=== PATIENT | female | born 1990 | race Caucasian/White ===

== ENCOUNTER → 2017-05-19 15:21 | Observation (INO) ==
[2017-05-19 14:22] LABS: Bilirubin,Urine Negative (Negative); Blood,Urine Negative (Negative); Clarity,Urine Cloudy (Clear); Color,Urine Yellow (Yellow); Glucose,Urine (UA) Normal (Normal); Ketones,Urine Trace mg/dL (Negative); Leukocyte Esterase,Urine Small (Negative); Nitrite,Urine Negative (Negative); Protein,Urine 30 mg/dL (Neg-Trace); Specific Gravity,Urine 1.026 (1.010-1.025); Urobilinogen,Urine Normal (Normal)
[2017-05-19 14:28] LABS: Amphetamine Screen,Urine Negative ng/mL (Cutoff=1000); Barbiturate Screen,Urine Negative ng/mL (Cutoff=200); Benzodiazepines Screen,Urine Negative ng/mL (Cutoff=200); Cannabinoid Screen,Urine Negative ng/mL (Cutoff = 50); Cocaine Screen,Urine Negative ng/mL (Cutoff= 300); Opiate Screen,Urine Negative ng/mL (Cutoff=300); Phencyclidine Screen,Urine Negative ng/mL (Cutoff=25)
[2017-05-19 14:36] LABS: Bacteria,Urine Few per hpf (None-Few); Calcium Oxalate Crystals,Urine Present; RBC,Urine 0-3 per hpf (0-3); Squamous Epithelial Cell,Urine Moderate per lpf (None-Few); WBC,Urine 0-3 per hpf (0-3)
--- NOTE | 2017-05-19 15:04 | OB/GYN Progress Note ---
Date of Encounter: 05/19/17 Time of Encounter: 14:50 - Assessment and Plan (1) 36 weeks gestation of Current Visit: Yes Status: Acute admitted for observation (2) Decreased movement Current Visit: Yes Status: Acute reactive nst Qualifiers: Fetus number: single or unspecified fetus Trimester: third trimester Qualified Code(s): O36.8130 - Decreased movements, third trimester, not applicable or unspecified (3) NST (non-stress test) reactive on surveillance Current Visit: Yes Status: Acute FHR baseline 135 bpm moderate variability +15x15 accels no decels noted. CAt. 1 tracing Subjective - Subjective Principal diagnosis: contractions and decreased movement Interval history: Patient is a 26 y/o at 36w6d presents to labor and delivery with c/o contractions and decreased movement. [facility] patient has not had much to eat or drink in the past 24 hours. Patient denies any urinary symptoms or vaginal bleeding. Antepartum ROS: no loss of fluid, no vaginal bleeding Objective - Vital Signs Vital Signs: Intake and Output 05/18/17 05/19/17 05/19/17 23:59 07:59 15:59 Other: Weight 90.4 kg Patient Weight 05/19/17 23:59 Weight 90.4 kg - Exam FHR: auscultation normal, category 1 FHR comments: 135 bpm moderate variability +15x15 accels no decels noted. CAt. 1 tracing. Auscultation: bilateral: normal Abdomen: Present: normal appearance, soft, gravid Uterus: Present: normal, firm Cervical dilation: FT per RN Cervix effacement: thick station: high - Labs Labs: Abnormal lab results Urine Clarity Cloudy (Clear) A 05/19/17 13:45 Ur Specific [place] 1.026 (1.010-1.025) H 05/19/17 13:45 Urine Protein 30 mg/dL (Neg-Trace) H 05/19/17 13:45 Urine Ketones Trace mg/dL (Negative) H 05/19/17 13:45 Ur Leukocyte Esterase Small (Negative) H 05/19/17 13:45 Ur Squamous Epith Cells Moderate per lpf (None-Few) H 05/19/17 13:45 Ur Culture Indicated? YES (NO) A 05/19/17 13:45
== END | disposition home or self-care (01) ==
LOC: 1NENULAB
PROVIDERS: ADMIT Obstetrics & Gynecology; ATTEND Obstetrics & Gynecology

== ENCOUNTER 2017-06-04 05:09 | Inpatient (IN) ==
[2017-06-04] MEDS ORDERED: Ondansetron 4 MG/2 ML VIAL IVP PRN (05:40)
[2017-06-04] MEDS ORDERED: *HR* Nalbuphine 20 MG/ML AMPUL IVP PRN (05:40)
[2017-06-04] MEDS ORDERED: Famotidine 20 MG/2 ML VIAL IVP PRN (05:40)
[2017-06-04] MEDS ORDERED: Metoclopramide 10 MG/2 ML VIAL IVP PRN (05:40)
[2017-06-04] MEDS ORDERED: Naloxone 0.4 MG/ML INJ IVP PRN (05:40)
[2017-06-04] MEDS ORDERED: Oxytocin 20 units/ LR 1000 mL 20 UNIT/1,000 ML BAG IVC SCH ×2 (05:45→16:40)
[2017-06-04] MEDS ORDERED: Ringers Solution, Lactated 1,000 ML IVC SCH (05:45)
[2017-06-04 06:02] LABS: Basophils % 0.3 %; Eosinophils # 0.1 K/mcL (0.0-0.6); Eosinophils % 0.9 %; Hemoglobin 12.4 g/dL (11.5-15.4); Immature Granulocytes % 0.4 % (0-4); Lymphocytes # 2.5 K/mcL (0.6-4.6); Lymphocytes % 21.1 %; Mean Corpuscular HGB Conc 34.4 g/dL (31.6-35.5); Mean Corpuscular Hemoglobin 31.4 pg (28.0-33.3); Mean Corpuscular Volume 91.1 fL (83.0-100.0); Mean Platelet Volume 10.2 fL (9.4-12.4); Monocytes # 1.1 K/mcL (0.0-1.3); Monocytes % 9.4 %; Platelet Count 316 K/mcL (140-400); Red Blood Count 3.95 M/mcL (3.82-4.97); Red Cell Distribution Width 12.7 % (11.5-14.5); Segmented Neutrophils % 67.9 %
[2017-06-04] MEDS ORDERED: Epidural Premix (fent/bupiv) 110 ML EP ONE ×2 (06:05→12:31)
[2017-06-04 06:11] LABS: Amphetamine Screen,Urine Negative ng/mL (Cutoff=1000); Barbiturate Screen,Urine Negative ng/mL (Cutoff=200); Benzodiazepines Screen,Urine Negative ng/mL (Cutoff=200); Cannabinoid Screen,Urine Negative ng/mL (Cutoff = 50); Cocaine Screen,Urine Negative ng/mL (Cutoff= 300); Opiate Screen,Urine Negative ng/mL (Cutoff=300); Phencyclidine Screen,Urine Negative ng/mL (Cutoff=25)
--- NOTE | 2017-06-04 06:43 | Anesthesia Evaluation PreOp ---
Date of Encounter: 06/04/17 Time of Encounter: 06:21 - Past History Planned Operation: vaginal del, 39wk induction Cardiac History: Denies any Significant Hx Pulmonary History: Denies Any Significant HX HOOF TRIMMER History: Denies Any Significant HX Anesthesia History: No Prior Anesthetic Complications, Past Anesthesia Alcohol Use: none Drug use: none Medications and Allergies Pnv Cmb#21/Iron/Folic Acid [ Complete Caplet] 1 tab PO DAILY 06/04/17 [ History] 3 Allergy/AdvReac Type Severity Reaction Status Date / Time No Known Allergies Allergy Verified 03/18/15 23:02 Anesthesia Results - Labs 06/04/17 05:30 Anesthesia Exam - HEENT Pupil (Motor): Pupils equal Mallampati: II Teeth: Normal Oral Opening: Greater than 3 - HOOF TRIMMER LOC: Oriented HOOF TRIMMER Motor: Normal RUE, Normal LUE, Normal RLE, Normal LLE, Normal Face HOOF TRIMMER Sensory: Normal: RUE, LUE, RLE, LLE, Face - Cardiac Rhythm: Regular Murmur: None - Pulmonary Breath Sounds: bilateral Clear Respiratory Effort: Symmetrical Anesthesia Assess/Plan ASA Score: 2 Modified [place] Scale for Level of Consciousness: Cooperative, oriented, and tranquil Anesthetic Plan: General, Regional Monitoring Plan: Standard Monitors Recovery Plan: PACU
--- NOTE | 2017-06-04 06:45 | Anesthesia Procedures ---
Date of Encounter: 06/04/17 Time of Encounter: 06:27 Procedures: Anesthesia - Epidural/Spinal Patient ID/Chart reviewed: Yes Patient examined: Yes OB Eval: Gestational age: term OB Eval: : 3 OB Eval: Hx Para: 2 OB Eval: Contractions: Non-stressed pattern Consent Obtained: Yes Supplemental Oxygen: None/Room Air Site Prep: Aseptic Technique, Sterile prep and drape, 0.5% Chlorhexidine/Alcohol Patient position: upright Local Anesthetic: Lidocaine 1% Amount of Local Anesthetic used: 2 Touhy Needle Gauge: 18 Touhy Needle Depth (cm): 6 Catheter Depth at Skin (cm): 10 Test Dose (1.5% Lido + Epi): Volume given (mls): 3 Test Dose Result: Negative Loading Dose: Other: 12ml from solution Loading Dose Administered: Thru Catheter Infusion Med: 0.125% Bupivacaine w/ 2 mcg/ml Fentanyl Infusion Rate (mls/hr): [address]: Tegaderm, Tape Interspace Used: L4-L5 Loss of Resistance (LORRIE): Yes (saline) Blood: No CSF: No Paresthesia: No Procedure: vss though out, FHR stable per RN's
--- NOTE | 2017-06-04 07:03 | OB/GYN History & Physical ---
Date of Encounter: 06/04/17 Time of Encounter: 07:01 Assessment and Plan (1) 39 weeks gestation of Current visit: Yes Status: Acute admit for scheduled IOL Pitocin per protocol (2) Rh negative status during Current visit: Yes Status: Acute Rhogam evaluation after delivery Qualifiers: Trimester: third trimester Qualified Code(s): O09.893 - Supervision of other high risk pregnancies, third trimester; Z67.91 - Unspecified blood type, Rh negative; Z67.91 - Unspecified blood type, Rh negative History of Present Illness Chief complaint: Scheduled Induction of labor HPI: Ms. Zhang is a 26 year old female @ 39w1d presents to labor and delivery for scheduled elective induction of labor. Patient reports +FM and regular contractions that started a few hours ago. Patient denies VB or LOF. Blood type: B Negative GBS: Negative all other labs drawn on admission and pending due to not being completed in the OB office Past Med Surg Social Fam HX - Past Medical History Source: patient Medical history: no medical history Psychiatric history: no psych history - Past Surgical History Surgical History: no surgical history - Social History Smoking Status: Never smoker Smokeless Tobacco Status: Yes Alcohol use: none Drug use: none Occupational status: employed Current living situation: Home - Independent Activity Level: Independent ambulation Recent Out of Country Travel Within the Last 8 Weeks: No Exposure or Possible Exposure to Illness During Travel: No - Family History Mother Adopted: No Living Status: Still Living Hx Family Cardiac Disorders: No Hx Family Respiratory Disorders: No Hx Family Cancer: No Hx Family GI Disorders: No Hx Family Genitourinary Disorders: No Hx Family Endocrine Disorder: No Hx Family Musculoskeletal Disorders: No Hx Family Neuromuscular Disorders: No Hx Family Neurologic Disorders: No Hx Family HEENT Disorders: No Hx Family Autoimmune Disorders: No Hx Family Reproductive Disorders: No Hx Family Psychosocial Disorders: No Hx Family Medical Disorders: No Obstetrical History - Pregnancies : 3 Para: 2 Term: 1 : 1 Ab's: 0 Livin Medications and Allergies Pnv Cmb#21/Iron/Folic Acid [ Complete Caplet] 1 tab PO DAILY 06/04/17 [ History] 3 Allergy/AdvReac Type Severity Reaction Status Date / Time No Known Allergies Allergy Verified 03/18/15 23:02 Review of System OB - Constitutional Constitutional ROS IM: no chills, no fever(s), no headache(s) - Cardiovascular Cardiovascular: no chest pain, no edema, no lightheadedness, no palpitations, no syncope - Gastrointestinal Gastrointestinal: no abdominal pain, no constipation, no diarrhea, no heartburn , no nausea, no vomiting - Genitourinary Genitourinary: no abnormal vaginal bleeding, no dysuria, no flank pain, no urinary frequency, no vaginal discharge, no vaginal odor, no vaginal pruritis Exam - Constitutional Constitutional: well developed, well nourished, no acute distress, average body habitus - HEENT HEENT: Normocephaly, Mucus Membranes Moist - Neck Neck exam: full ROM, supple - Lungs Respiratory exam: CTAB - Cardiovascular Cardiovascular exam: RRR, +S1, +S2 - Abdomen Abdomen: Present: bowel sounds normal, gravid, non tender - Extremities Extremities exam: full ROM, normal capillary refill, normal inspection Deep Tendon Reflex Grade: 2+ Normal - Cervix Dilation: 4 (per RN) Effacement: 90 Station: -2 - Uterus Uterus exam: Present: normal size, normal contour - Anus/Rectum Anus/Rectum: Present: normal perianal skin - Comments Comments: FHR 120 bpm moderate variability +15x15 accels no decels noted. Cat. 1 tracing. Contractions 3-4 min apart. Results Result Diagrams: 06/04/17 05:30 Abnormal lab results WBC 11.8 K/mcL (4.3-11.1) H 06/04/17 05:30 All other labs normal. - VTE Reasons for not Prescribing Prophylaxis: Treatment not Indicated - Low risk for VTE
--- NOTE | 2017-06-04 08:30 | OB Labor Progress Note ---
Date of Encounter: 06/04/17 Time of Encounter: 08:28 Labor Progress Note - Subjective Subjective: Patient is comfortable post epidural - Vital Signs Vital Signs: Afebrile, vital signs stable - Cervix Cervix: 4-5/80/-1, vertex - Heart Tones Heart Tones: 130s baseline, CAT 1 - [place]: Irregular every to 3 minutes on 6 milliunits of Pitocin - Interventions Interventions: 39 week IUP originally scheduled for induction of labor, arrives with spontaneous contractions and cervical change now for augmentation of labor. - Plan Plan: Augmentation of labor, amniotomy with clear fluid seen. Anticipate vaginal delivery
--- NOTE | 2017-06-04 10:26 | OB Labor Progress Note ---
Date of Encounter: 06/04/17 Time of Encounter: 10:24 Labor Progress Note - Subjective Subjective: Due to the patient's room due to variable decel into the 80s. Patient continues to be comfortable with her epidural - Vital Signs Vital Signs: Afebrile, vital signs stable - Cervix Cervix: 5/90/-1, vertex - Heart Tones Heart Tones: Currently 130s baseline, CAT 2 - [place]: Contractions every 2-3 minutes 30-50 mmHg on 10 milliunits of Pitocin - Interventions Interventions: 39 week IUP for induction of labor, , B- blood type for induction of labor. - Plan Plan: Patient placed on peanut ball with uterine displacement. Continue close observation
--- NOTE | 2017-06-04 11:55 | OB Labor Progress Note ---
Date of Encounter: 06/04/17 Time of Encounter: 11:51 Labor Progress Note - Subjective Subjective: Resting comfortably in high fowlers - Vital Signs Vital Signs: Afeb, VSS, BP 116/68 - Cervix Cervix: not examined - Heart Tones Heart Tones: 120s CAT1 - [place]: q 2-4', 30-80mmHg on10 mU PIT - Interventions Interventions: 39 wk sp labor w/ augmentation - Plan Plan: Anticipate
[2017-06-04] MEDS ORDERED: Bupivacaine-MPF 0.25% 10 ML VIAL EP ONE (12:25)
[2017-06-04] MEDS ORDERED: *HR* FentaNYL (PF) 100 MCG/2 ML VIAL EP ONE (12:25)
[2017-06-04] MEDS ORDERED: Epidural Premix (fent/bupiv) 110 ML EP SCH (12:30)
--- NOTE | 2017-06-04 13:48 | OB/GYN Procedure Note ---
Delivery - Delivery Date: 06/04/17 Provider: Trang Valenzuela Intrapartum events: none Delivery induction: none Delivery augmentation: rupture of membranes, pitocin Delivery monitor: external FHT, external uterine, internal uterine Anesthesia: epidural Estimated Blood Loss: 100 - (s) A Infant Delivery Date: 06/04/17 Delivery Time: 13:14 Presentation: vertex Position: EUGENE Route of delivery: Gender: Male Viability: Viable Pounds: 9 Ounces: 6 Weight Gram: 4.245 kg at 1 minute: 8 at 5 mins: 9 Shoulder Dystocia: not encountered Specimens collected: cord blood Placenta: spontaneous, uterine exploration Cord: nuchal cord, 3 umbilical vessels, nuchal reduced - Repair Episiotomy: none Laceration Description: Periurethral, Perineal - 2nd Degree - Complications Delivery complications: none Delivery comments: The patient was complete and pushing with epidural anesthesia with a spontaneous vaginal delivery in the EUGENE position of a vigorous male infant weighing 9 lbs. 6 oz. with Apgars of 8 at 1 minute and 9 at 5 minutes. Nuchal cord 1 was reduced on the perineum. was placed on the maternal abdomen. The cord was clamped and cut after pulsations ceased. Cord blood obtained. The placenta was delivered spontaneous and intact. Bilateral periurethral lacerations were hemostatic and not repaired. So There was a second-degree perineal laceration which was repaired with 3-0 Monoicryl in the usual fashion. Estimated blood loss 100 mL, complications none - Disposition Mom disposition: stable in LDR [place] disposition: stable in LDR
[2017-06-04] MEDS ORDERED: Rho Immune Globulin 1,500 UNIT SYRINGE IM PRN (16:40)
[2017-06-04] MEDS ORDERED: Acetaminophen 325 MG TABLET PO PRN (16:40)
[2017-06-04] MEDS: Ibuprofen 600 MG TABLET PO SCH (17:40)
[2017-06-04] MEDS ORDERED: Benzocaine/Menthol 56 GM AEROSOL SPRAY TP PRN (19:30)
[2017-06-05] MEDS: Ibuprofen 600 MG TABLET PO SCH ×3 (00:36→11:34)
[2017-06-05 04:08] LABS: Basophils # 0.1 K/mcL (0.0-0.2); Basophils % 0.4 %; Eosinophils # 0.2 K/mcL (0.0-0.6); Eosinophils % 1.2 %; Hematocrit 34.3 % (35.3-44.9); Hemoglobin 11.7 g/dL (11.5-15.4); Immature Granulocytes % 0.6 % (0-4); Lymphocytes # 2.9 K/mcL (0.6-4.6); Lymphocytes % 16.9 %; Mean Corpuscular HGB Conc 34.1 g/dL (31.6-35.5); Mean Corpuscular Volume 90.7 fL (83.0-100.0); Mean Platelet Volume 9.9 fL (9.4-12.4); Monocytes # 1.6 K/mcL (0.0-1.3); Monocytes % 9.2 %; Neutrophils # 12.4 K/mcL (1.6-8.9); Platelet Count 263 K/mcL (140-400); Red Blood Count 3.78 M/mcL (3.82-4.97); Red Cell Distribution Width 12.7 % (11.5-14.5); Segmented Neutrophils % 71.7 %
--- NOTE | 2017-06-05 08:24 | Discharge Summary ---
Date of Encounter: 06/05/17 Time of Encounter: 08:21 - Discharge Diagnosis (1) 39 weeks gestation of Priority: Secondary Status: Acute (2) Rh negative status during Priority: Secondary Status: Acute Comments: rhogam eval after delivery Qualifiers: Trimester: third trimester Qualified Code(s): O09.893 - Supervision of other high risk pregnancies, third trimester; Z67.91 - Unspecified blood type, Rh negative; Z67.91 - Unspecified blood type, Rh negative (3) Status post vaginal delivery Priority: Primary Status: Acute Comments: Continue routine care discharge home today follow up with Dr. Ryder in 4 weeks (4) Breast feeding status of mother Priority: Secondary Status: Acute Comments: support prn - Discharge Medications Prescriptions: Ibuprofen [Motrin] 600 mg PO Q6HR #60 tablet Breast Pump [BREAST PUMP] 1 each .ROUTE AD #1 each Docusate [Colace] 100 mg PO BID #30 capsule Home Medications: Pnv Cmb#21/Iron/Folic Acid [ Complete Caplet] 1 tab PO DAILY 06/04/17 [ History] Breast Pump [BREAST PUMP] 1 each .ROUTE AD #1 each 06/05/17 [Rx] Docusate [Colace] 100 mg PO BID #30 capsule 06/05/17 [Rx] Ibuprofen [Motrin] 600 mg PO Q6HR #60 tablet 06/05/17 [Rx] Allergies/Adverse Reactions: 3 Allergy/AdvReac Type Severity Reaction Status Date / Time No Known Allergies Allergy Verified 03/18/15 23:02 Data Procedures and tests throughout hospitalization: Laboratory Tests 06/04/17 06/04/17 06/04/17 05:30 05:30 06:22 WBC 11.8 H RBC 3.95 Hgb 12.4 Hct 36.0 MCV 91.1 MCH 31.4 MCHC 34.4 RDW 12.7 Plt Count 316 MPV 10.2 Immature Gran % 0.4 Seg Neutrophils % 67.9 Lymphocytes % 21.1 Monocytes % 9.4 Eosinophils % 0.9 Basophils % 0.3 Neutrophils # 8.0 Lymphocytes # 2.5 Monocytes # 1.1 Eosinophils # 0.1 Basophils # 0.0 Urine Opiates Screen Negative Ur Barbiturates Screen Negative Ur Phencyclidine Scrn Negative Ur Amphetamines Screen Negative U Benzodiazepines Scrn Negative Urine Cocaine Screen Negative U Marijuana (THC) Screen Negative Hep Bs Antigen Nonreactive Screen Baby's Blood Type Mother's Blood Type Rhogam Indicated Rhogam Req for Mother 06/04/17 06/05/17 13:40 03:52 WBC 17.3 H RBC 3.78 L Hgb 11.7 Hct 34.3 L MCV 90.7 MCH 31.0 MCHC 34.1 RDW 12.7 Plt Count 263 MPV 9.9 Immature Gran % 0.6 Seg Neutrophils % 71.7 Lymphocytes % 16.9 Monocytes % 9.2 Eosinophils % 1.2 Basophils % 0.4 Neutrophils # 12.4 H Lymphocytes # 2.9 Monocytes # 1.6 H Eosinophils # 0.2 Basophils # 0.1 Urine Opiates Screen Ur Barbiturates Screen Ur Phencyclidine Scrn Ur Amphetamines Screen U Benzodiazepines Scrn Urine Cocaine Screen U Marijuana (THC) Screen Hep Bs Antigen Screen NEGATIVE Baby's Blood Type B RH POSITIVE Mother's Blood Type B RH NEGATIVE Rhogam Indicated YES Rhogam Req for Mother 1 Labs on day of discharge: Labs from last 24 hours 06/05/17 06/04/17 03:52 13:40 WBC 17.3 H RBC 3.78 L Hgb 11.7 Hct 34.3 L MCV 90.7 MCH 31.0 MCHC 34.1 RDW 12.7 Plt Count 263 MPV 9.9 Immature Gran % 0.6 Seg Neutrophils % 71.7 Lymphocytes % 16.9 Monocytes % 9.2 Eosinophils % 1.2 Basophils % 0.4 Neutrophils # 12.4 H Lymphocytes # 2.9 Monocytes # 1.6 H Eosinophils # 0.2 Basophils # 0.1 Screen NEGATIVE Baby's Blood Type B RH POSITIVE Mother's Blood Type B RH NEGATIVE Rhogam Indicated YES Rhogam Req for Mother 1 Date of admission: 06/04/17 05:09 Primary care physician: Jaden Cazares MD Consults: 06/04/17 16:40 Consult to Art Studio Teacher [CONS] Routine Comment: Vaginal delivery, consult needed Discharging clinician: Ladonna Haines Anticipated date of discharge: 06/05/17 - Patient Status Disposition: Home, Self-Care Condition: Good Functional capacity at discharge: independent ambulation - Discharge Instructions Follow Up With: Jaden Cazares MD [Primary Care Provider] - George Ryder MD [Partnered Physician] - - Diet and Activity Activity: increase activity as tolerated Diet: regular diet Hospital Course Reason for admission: induction of labor Delivery: Episiotomy: none Laceration: 1st degree Other procedures: none complications: none Discharge diagnosis: IUP at term delivered baby: male (breast and bottle) Time Attestation: Total time spent providing and/or coordinating discharge services: Time Spent: Less than 30 minutes Exam - Constitutional Vitals: Temp Pulse Resp BP Pulse Ox 97.7 F 70 16 102/62 98 06/05/17 04:30 06/05/17 04:30 06/05/17 04:30 06/05/17 04:30 06/05/17 04:30 General appearance IM: A&O X 3, pleasant, answers questions appropriately - Respiratory Respiratory exam: Present: CTAB - Cardiovascular Cardiovascular exam IM: Present: RRR, +S1, +S2 - GI/Abdominal GI/Abdominal exam IM: normal bowel sounds - Uterine Tone: Firm Uterus Position: 1 Finger Below Umbilicus, Midline - Extremities Exam Extremities exam IM: Present: full ROM, normal capillary refill, normal inspection - Neurological Exam Neurological exam: alert, oriented X3, reflexes normal
[2017-06-05 08:50] VITALS: BP 87/53
[2017-06-05] MEDS ORDERED: Prenatal Vit/FA 1 EACH TABLET PO SCH (09:00)
[2017-06-05 12:46] LABS: Rubella IgG Antibody POSITIVE (POSITIVE); Varicella Zoster IgG Antibody Positive
== END 2017-06-05 17:30 | disposition home or self-care (01) | DRG 775 ==
LOC: 1NENULAB 05:09 → 1NENUOBS 16:20
PROVIDERS: ADMIT Obstetrics & Gynecology; ATTEND Obstetrics & Gynecology